=== PATIENT | male | born 1965 | race Caucasian/White ===

== ENCOUNTER 2017-11-26 15:42 | Emergency (ER) | payer MEDICARE ==
[~2017-11-26] VITALS: Ht 185.4 cm; Wt 104.5 kg
[~2017-11-26 15:42] MED LIST: AMBIEN 5MG TABLE5 MG; ASPIRIN 81M81 MG/TA2 PO; LEXAPRO20 MG PO; PRINIVIL20 MG PO; TOPROL XL 25MG25 MG PO
[2017-11-26 15:52] VITALS: TEMP 98.1
[2017-11-26 16:22] LABS: BASO % 0.5 % (0.0-2.0); EOS # 0.1 (0.0-0.7); EOS % 1.7 % (0-4.0); GRAN # 5.4 (1.4-6.5); GRAN % 66.2 % (42.2-75.2); HEMATOCRIT 47.6 % (42.0-52.0); HEMOGLOBIN 16.6 g/dl (13.5-18.0); LYMPH # 1.9 (1.2-3.4); LYMPH % 23.8 % (20.0-51.0); MEAN CELL VOLUME 91 fl (80.0-100.0); MEAN CORPUSCULAR HEMOGLOBIN 32 pg (27.0-31.0); MEAN CORPUSCULAR HGB CONC 35 g/dl (33.0-37.0); MEAN PLATELET VOLUME 10.5 fl (7.4-10.4); MONO # 0.6 (0.1-0.6); MONO % 7.4 % (1.7-9.3); PLATELET COUNT 214 K/mm3 (130-400); RED BLOOD COUNT 5.22 M/mm3 (4.20-5.60); REDCELL DISTRIBUTION WIDTH-CV 12.6 % (11.5-14.5)
[2017-11-26] MEDS ORDERED: STRATTERA60 MG PO (16:23)
[2017-11-26] MEDS ORDERED: LASIX 20MG TABL20 MG PO (16:24)
[2017-11-26] MEDS ORDERED: PROVENTIL0.09 MG/A1 IH (16:25)
[2017-11-26] MEDS ORDERED: ALDACTONE 25MG25 M1 PO (16:25)
[2017-11-26] MEDS ORDERED: COMBIRESP IH (16:26)
[2017-11-26] MEDS ORDERED: NORCO 325 MG-51 TAB PO (16:26)
[2017-11-26] MEDS ORDERED: PULMICORT180 MCG/Ac IH (16:27)
[2017-11-26] MEDS ORDERED: AMBIEN 10MG10 MG PO (16:28)
[2017-11-26] MEDS ORDERED: K-DUR20 MEQ PO (16:28)
[2017-11-26] MEDS ORDERED: RT ALBUTER2.5 MG/0.5 IH (16:29)
[2017-11-26] MEDS ORDERED: ATROVENT I0.2 MG/1 M IH (16:30)
[2017-11-26 16:33] LABS: ALANINE AMINOTRANSFERASE 148 U/L (21-72); ALBUMIN 4.8 gm/dL (3.5-5.0); ALKALINE PHOSPHATASE 93 U/L (50-136); ANION GAP 15 mmol/L (7-16); AST,SGOT 81 U/L (15-37); BILIRUBIN,TOTAL 2.3 mg/dL (0.0-1.0); BLOOD UREA NITROGEN 18 mg/dL (9-20); CALCIUM 9.9 mg/dL (8.4-10.2); CARBON DIOXIDE 22 mmol/L (22-30); CHLORIDE 102 mmol/L (98-107); CREATININE, serum 1.07 mg/dL (0.66-1.25); GLUCOSE 100 mg/dL (74-106); POTASSIUM 4.1 mmol/L (3.4-5.0); SODIUM 139 mmol/L (137-145); TOTAL PROTEIN 8.7 gm/dL (6.4-8.2)
[2017-11-26 16:42] LABS: C-REACTIVE PROTEIN 0.5 mg/dL (0.0-0.9)
[2017-11-26 16:51] LABS: TROPONIN-I < 0.012 ng/mL (0.000-0.034)
[2017-11-26] MEDS ORDERED: PREDNISONE20 MG PO (17:05)
[2017-11-26] MEDS ORDERED: ZITHROMAX 250M250 MG PO (17:05)
[2017-11-26 17:23] VITALS: BP 115/76; PULSE 71
== END 2017-11-26 17:23 | disposition home or self-care (01) ==
LOC: COL.ER 15:42
PROVIDERS: Emergency Medicine
DX: J45.909 Unspecified asthma, uncomplicated (principal); R06.02 Shortness of breath; I10 Essential (primary) hypertension; I42.9 Cardiomyopathy, unspecified; Z79.82 Long term (current) use of aspirin
CPT/HCPCS: J7512